=== PATIENT | male | born 1985 | race American Indian/Alaskan Native ===

== ENCOUNTER 2017-07-02 23:57 | Emergency (ER) | payer SELFPAY ==
[2017-07-03 00:29] VITALS: BP 143/95
[2017-07-03] MEDS ORDERED: MOTRIN PO ONE (00:31)
--- NOTE | 2017-07-03 01:58 | Emergency Department Report ---
HPI - General Chief Complaint: Extremity Injury, Lower Time Seen by Provider: 07/03/17 01:08 - [facility] HPI: Pt is a 31-year-old male with no prior medical history who presents to ED complaining of right foot pain since Wednesday. Patient states he was walking around the house and shoes on. Pain started 3 days ago. Patient denies any injuries fall trauma to the foot. Patient states he went ahead and went to work and while standing at work he felt throbbing aching pain on the anterior aspect of his foot close to his toes. Patient denies any lesions swelling of the foot or loss of sensation. ED Past Medical Hx - Past Medical History Previous Medical History?: No - Surgical History Past Surgical History?: No - Social History Smoking Status: Never Smoker Substance Use Type: None - Medications Home Medications: Home Medications Medication Instructions Recorded Confirmed Last Taken Type Fluticasone Propionate [Flonase] 200 mcg NS QDAY #1 spray 08/23/13 12/28/13 Rx Acetaminophen/Codeine 1 tab PO Q6H PRN #30 tab 12/29/13 Unknown Rx [Acetaminophen-Codeine #3 TAB] Loratadine [Claritin] 10 mg PO DAILY #30 tablet 12/29/13 Unknown Rx Sulfamethoxazole/Trimethoprim 1 each PO BID #20 tablet 12/29/13 Unknown Rx [Bactrim Ds] Cyclobenzaprine [Flexeril] 10 mg PO QHS PRN #10 tablet 07/03/17 Unknown Rx Ibuprofen [Motrin 600 MG tab] 600 mg PO Q8H PRN #60 tablet 07/03/17 Unknown Rx ED Review of Systems ROS: Stated complaint: FOOT SORE Other details as noted in HPI Constitutional: denies: chills, fever Eyes: denies: eye pain, eye discharge, vision change ENT: denies: ear pain, throat pain Respiratory: denies: cough, shortness of breath, wheezing Cardiovascular: denies: chest pain, palpitations Endocrine: no symptoms reported Gastrointestinal: denies: abdominal pain, nausea, diarrhea Genitourinary: denies: urgency, dysuria Musculoskeletal: myalgia. denies: back pain, joint swelling, arthralgia Skin: denies: rash, lesions Neurological: denies: headache, weakness, paresthesias Psychiatric: denies: anxiety, depression Hematological/Lymphatic: denies: easy bleeding, easy bruising Physical Exam - Physical Exam Vital Signs: Vital Signs 07/03/17 00:18 Temperature 98.7 F Pulse Rate 89 Respiratory 16 Rate Blood Pressure 143/95 O2 Sat by Pulse 100 Oximetry Physical Exam: GENERAL: Alert and oriented x3, no apparent distress, Normal Gait, atraumatic. HEAD: Head is normocephalic and a-traumatic. NECK: Supple. Non edematous, No lymphadenopathy or thyromegaly. No C-spine tenderness, full range of motion LUNGS: Symetrical with respiration, No wheezing, no rales or crackles, CTAB. HEART: S1, S2 present, regular rate and rhythm without murmur, no rubs, no gallops. Non tender to palpation EXTREMITIES/MUSCULOSKELETAL: No cyanosis, clubbing, rash, lesions or edema in all lower extremities. Full ROM bilaterally. UE/LE Pulses 2+ bilaterally. LE and UE 5+ strength bilaterally, mild tenderness to palpation of the anterior aspect of the foot, no swelling, no lesions, full range of motion NEUROLOGIC: The patient is cooperative with no focal neurologic deficits. SKIN: Warm and dry, No lesions, No ulceration or induration present. ED Course Vital Signs 07/03/17 00:18 Temperature 98.7 F Pulse Rate 89 Respiratory 16 Rate Blood Pressure 143/95 O2 Sat by Pulse 100 Oximetry ED Medical Decision Making - Radiology Data Radiology results: report reviewed, image reviewed FINAL REPORT PROCEDURE: XR FOOT 3+V RT TECHNIQUE: RIGHT foot radiographs, AP, lateral, and oblique views. CPT 57098 HISTORY: right foot pain around toes COMPARISON: No prior studies are available for comparison. FINDINGS: Fracture (s) and/or Dislocation(s): None . Alignment: Normal . Joint space(s): Normal . Soft tissues: Normal . Bone mineralization: Normal . Foreign bodies: None . Calcaneal spurring: None . IMPRESSION: Normal Examination . Transcribed By: CO Dictated By: JOSH LUZ MD Electronically Authenticated By: JOSH LUZ MD Signed Date/Time: 07/03/17 0324 - Medical Decision Making 31 -year-old male presents to ED with right foot pain ED course: Patient received Motrin in ED. x-rays taken. X-rays resulted above Vital signs are normal patient is in no acute distress Discussed with patient follow-up with primary care physician. [employer] referral given Discussed the patient and take medications as prescribed. Patient has no neurological deficit. Patient is alert and oriented 3 and understands all instructions given. Discussed drowsiness effect of Flexeril makes her drowsy and not to operate machinery while taking flexeril Critical care attestation.: If time is entered above; I have spent that time in minutes in the direct care of this critically ill patient, excluding procedure time. ED Disposition Clinical Impression: Foot pain, right Arthralgia Qualifiers: Joint pain location: foot Laterality: right Qualified Code(s): M25.571 - Pain in right ankle and joints of right foot Flat foot Qualifiers: Laterality: bilateral Qualified Code(s): M21.41 - Flat foot [pes planus] ( acquired), right foot Disposition: TO HOME OR SELFCARE Is pt being admited?: No Does the pt Need Aspirin: No Condition: Stable Instructions: Foot Sprain (ED), Arthralgia (ED) Additional Instructions: Make sure to follow up with the primary care physician as discussed. Take all your medications as you've been prescribed. If you have any worsening symptoms or develop new symptoms please return to ED immediately. Prescriptions: Cyclobenzaprine [Flexeril] 10 mg PO QHS PRN #10 tablet PRN Reason: Muscle Spasm Ibuprofen [Motrin 600 MG tab] 600 mg PO Q8H PRN #60 tablet PRN Reason: Pain Referrals: PRIMARY MD FATIMAH [Primary Care Provider] - 3-5 Days LISA DAILY MD [Referring] - 3-5 Days BEAU VILLAR MD [Staff Physician] - 3-5 Days Forms: Accompanied Note, Work/School Release Form(ED) Time of Disposition: 02:08
--- NOTE | 2017-07-03 03:29 | XRay Report ---
FINAL REPORT PROCEDURE: XR FOOT 3+V RT TECHNIQUE: RIGHT foot radiographs, AP, lateral, and oblique views. CPT 26001 HISTORY: right foot pain around toes COMPARISON: No prior studies are available for comparison. FINDINGS: Fracture (s) and/or Dislocation(s): None . Alignment: Normal . Joint space(s): Normal . Soft tissues: Normal . Bone mineralization: Normal . Foreign bodies: None . Calcaneal spurring: None . IMPRESSION: Normal Examination .
== END 2017-07-03 02:47 | disposition home or self-care (01) ==
LOC: ED 23:57
DX: M21.41 Flat foot [pes planus] (acquired), right foot (principal)
CPT/HCPCS: 99283

== ENCOUNTER 2020-07-30 15:23 | Emergency (ER) | payer SELFPAY ==
[2020-07-30 17:56] VITALS: BP 152/95
--- NOTE | 2020-07-30 17:56 | Emergency Department Report ---
ED General Adult HPI - General Stated complaint: FOOT PAIN Time Seen by Provider: 07/30/20 17:52 - History of Present Illness Initial comments: 34-year-old male patient presents to the emergency department with complaints of traumatic right foot/right ankle pain starting 2 days ago. Patient states he was attempting to step into the bathtub when he accidentally twisted his ankle. There was no resulting fall, head injury, loss of consciousness. No history of prior injuries to the right foot/right ankle. Patient has been wearing his daughter's Velcro splint at home since the injury occurred. Denies back pain, hip pain, knee pain, paresthesias, numbness. Denies all other complaints at this time. - Related Data Previous Rx's Medication Instructions Recorded Last Taken Type Fluticasone Propionate [Flonase] 200 mcg NS QDAY #1 spray 08/23/13 12/06/13 Rx Acetaminophen/Codeine 1 tab PO Q6H PRN #30 tab 12/29/13 Unknown Rx [Acetaminophen-Codeine #3 TAB] Loratadine (Nf) [Claritin] 10 mg PO DAILY #30 tablet 12/29/13 Unknown Rx Sulfamethoxazole/Trimethoprim 1 each PO BID #20 tablet 12/29/13 Unknown Rx [Bactrim Ds] Cyclobenzaprine [Flexeril] 10 mg PO QHS PRN #10 tablet 07/03/17 Unknown Rx Ibuprofen [Motrin 600 MG tab] 600 mg PO Q8H PRN #60 tablet 07/03/17 Unknown Rx Albuterol Mdi (or & Nicu Only) 2 puff IH QID PRN #8.5 gram 09/09/19 Unknown Rx [ProAir HFA Inhaler] Benzonatate [Tessalon Perles] 100 mg PO Q8HR PRN #20 capsule 09/09/19 Unknown Rx Ondansetron [Zofran Odt] 4 mg PO Q8HR PRN #15 tab.rapdis 09/09/19 Unknown Rx Naproxen 500 mg PO BID #20 tablet 07/30/20 Unknown Rx Allergies Allergy/AdvReac Type Severity Reaction Status Date / Time No Known Allergies Allergy Verified 07/30/20 17:54 ED Review of Systems ROS: Stated complaint: FOOT PAIN Other details as noted in HPI Other: CARDIOVASCULAR: Negative for chest pain. PULMONARY: Negative for dyspnea. GASTROINTESTINAL: Negative for abdominal pain. MUSCULOSKELETAL: Positive for right foot/right ankle pain. NEUROLOGICAL: Negative for headache. INTEGUMENTARY: Negative for ecchymosis. ED Past Medical Hx - Social History Smoking Status: Never Smoker Substance Use Type: None - Medications Home Medications: Home Medications Medication Instructions Recorded Confirmed Last Taken Type Fluticasone Propionate [Flonase] 200 mcg NS QDAY #1 spray 08/23/13 12/28/13 12/06/13 Rx Acetaminophen/Codeine 1 tab PO Q6H PRN #30 tab 12/29/13 Unknown Rx [Acetaminophen-Codeine #3 TAB] Loratadine (Nf) [Claritin] 10 mg PO DAILY #30 tablet 12/29/13 Unknown Rx Sulfamethoxazole/Trimethoprim 1 each PO BID #20 tablet 12/29/13 Unknown Rx [Bactrim Ds] Cyclobenzaprine [Flexeril] 10 mg PO QHS PRN #10 tablet 07/03/17 Unknown Rx Ibuprofen [Motrin 600 MG tab] 600 mg PO Q8H PRN #60 tablet 07/03/17 Unknown Rx Albuterol Mdi (or & Nicu Only) 2 puff IH QID PRN #8.5 gram 09/09/19 Unknown Rx [ProAir HFA Inhaler] Benzonatate [Tessalon Perles] 100 mg PO Q8HR PRN #20 capsule 09/09/19 Unknown Rx Ondansetron [Zofran Odt] 4 mg PO Q8HR PRN #15 tab.rapdis 09/09/19 Unknown Rx Naproxen 500 mg PO BID #20 tablet 07/30/20 Unknown Rx ED Course Vital Signs 07/30/20 17:54 Temperature 99.0 F Pulse Rate 89 Respiratory 20 Rate Blood Pressure 152/95 O2 Sat by Pulse 99 Oximetry ED Medical Decision Making - Radiology Data [facility] [address] [place] [address] XRay Report Signed Patient: BRENDEN BERNARD MR#: [id number] : 1985 Acct:[id number] Age/Sex: 34 / M ADM Date: 07/30/20 Loc: ED Attending Dr: Ordering Physician: AUDREY TERRELL Date of Service: 07/30/20 Procedure(s): XR ankle 3+V RT Accession Number(s): [id number] cc: AUDREY TERRELL Fluoro Time In Minutes: RIGHT ANKLE 3 VIEW(S) INDICATION / CLINICAL INFORMATION: stepping wrong on Wednesday. 12/29 r foot pain. deformity at ankle. pt came with a walking boot. unable to bear weight. COMPARISON: None available. FINDINGS: BONES / JOINT(S): No acute fracture or subluxation. No significant arthritis. No significant joint effusion. SOFT TISSUES: Mild bimalleolar and anterior soft tissue swelling. ADDITIONAL FINDINGS: None. Signer Name: Laisha Silverman MD Signed: 07/30/2020 6:40 PM Workstation Name: [id number] Transcribed By: DT Dictated By: Phani Silverman MD Electronically Authenticated By: Phani Silverman MD Signed Date/Time: 07/30/201839 DD/ 38 TD/TT: - Medical Decision Making Differential diagnosis including but not limited to: sprain, strain, fracture, contusion, dislocation, Achilles tendon rupture On reevaluation, patient remains stable. Repeat neurovascular exam remains intact. X-rays show bimalleolar and anterior soft tissue swelling without evidence of fracture or dislocation. Patient already has a walking boot; he will be prescribed appropriate analgesics and referred to orthopedics for close outpatient follow-up. Patient expressed understanding and is agreeable to plan of care. RICE precautions discussed. Strict return precautions provided. Repeat exam is unremarkable and benign. History, exam, diagnostic testing, and current condition do not suggest worrisome pathology to warrant further testing, continued ED treatment, admission, or surgical evaluation at this point. Given the low probability of a significant medical illness, it would be more likely to result in harm than benefit to perform further testing at this stage. Discussed findings, presumptive diagnosis, need for follow-up and specific signs/symptoms that should prompt immediate return to the emergency department. Instructions were explained in detail to the patient in addition to giving written discharge information. Patient expressed understanding and was given the opportunity to ask questions, all of which were satisfactorily answered prior to discharge home. Critical care attestation.: If time is entered above; I have spent that time in minutes in the direct care of this critically ill patient, excluding procedure time. ED Disposition Clinical Impression: Right ankle sprain Qualifiers: Encounter type: initial encounter Involved ligament of ankle: unspecified ligament Qualified Code(s): S93.401A - Sprain of unspecified ligament of right ankle, initial encounter Disposition: TO HOME OR SELFCARE Is pt being admited?: No Does the pt Need Aspirin: No Condition: Stable Instructions: Ankle Sprain, [id number] Additional Instructions: Take Tylenol every 4 hours as needed for pain. Take Naprosyn twice daily with food as needed for pain. Wear boot as directed. Keep right foot/right ankle elevated as often as possible to reduce swelling. Apply ice to the affected area as needed to reduce swelling. Gradually advance physical activity slowly as tolerated. Follow-up with Dr. Walker, orthopedics, this week. Call tomorrow to schedule an appointment. Return to the emergency department immediately for new or worsening symptoms. Prescriptions: Naproxen 500 mg PO BID #20 tablet Referrals: SWETA WALKER MD [Staff Physician] - 3-5 Days Time of Disposition: 19:06
--- NOTE | 2020-07-30 18:44 | XRay Report ---
RIGHT FOOT 3 VIEW(S) INDICATION / CLINICAL INFORMATION: stepping wrong on Wednesday. 12/29 r foot pain. deformity at ankle. p t came with a walking boot. unable to bear weight. COMPARISON: 07/03/17 FINDINGS: BONES / JOINT(S): No acute fracture or subluxation. No significant arthritis. SOFT TISSUES: No significant abnormality. ADDITIONAL FINDINGS: None. Signer Name: Laisha Silverman MD Signed: 07/30/2020 6:39 PM Workstation Name: [id number]
--- NOTE | 2020-07-30 18:45 | XRay Report ---
RIGHT ANKLE 3 VIEW(S) INDICATION / CLINICAL INFORMATION: stepping wrong on Wednesday. 12/29 r foot pain. deformity at ankle. p t came with a walking boot. unable to bear weight. COMPARISON: None available. FINDINGS: BONES / JOINT(S): No acute fracture or subluxation. No significant arthritis. No significant joint ef fusion. SOFT TISSUES: Mild bimalleolar and anterior soft tissue swelling. ADDITIONAL FINDINGS: None. Signer Name: Laisha Silverman MD Signed: 07/30/2020 6:40 PM Workstation Name: [id number]
== END 2020-07-30 19:25 | disposition home or self-care (01) ==
LOC: ED 15:23
DX: S93.401A Sprain of unspecified ligament of right ankle, initial encounter (principal); Z79.899 Other long term (current) drug therapy; X50.1XXA Overexertion from prolonged static or awkward postures, initial encounter; Y93.89 Activity, other specified; Y92.89 Other specified places as the place of occurrence of the external cause; Y99.8 Other external cause status

== ENCOUNTER 2021-10-23 07:47 | Emergency (ER) | payer SELFPAY ==
[2021-10-23] MEDS ORDERED: IBUPROFEN 800 MG TAB PO ONE (08:12)
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
[2021-10-23 08:49] VITALS: BP 143/65
--- NOTE | 2021-10-23 09:16 | XRay Report ---
Left hand, 3 views HISTORY: Pain COMPARISON: None FINDINGS: No acute fracture or malalignment. No significant arthritis. There is soft tissue swelling of the dorsum of the hand. IMPRESSION: No acute osseous findings of the left hand. Signer Name: Eron Mac MD Signed: 10/23/2021 9:12 AM Workstation Name: [id number]
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
== END 2021-10-23 11:34 | disposition home or self-care (01) ==
LOC: ED 07:47
DX: S69.92XA Unspecified injury of left wrist, hand and finger(s), initial encounter (principal); S29.001A Unspecified injury of muscle and tendon of front wall of thorax, initial encounter; V89.2XXA Person injured in unspecified motor-vehicle accident, traffic, initial encounter; Y93.89 Activity, other specified; Y92.89 Other specified places as the place of occurrence of the external cause; Y99.8 Other external cause status
CPT/HCPCS: 71046; 72040; 99283